=== PATIENT | male | born 1995 | race Caucasian/White ===

== ENCOUNTER 2017-03-10 07:40 | Emergency (ER) | payer OTHER ==
[2017-03-10 07:47] VITALS: BP 134/90; PULSE 72; RESP 17; TEMP 97.7
--- NOTE | 2017-03-10 08:11 | ED ---
ENT HPI - General Chief complaint: Dental/Oral Stated complaint: Dental Pain Time Seen by Provider: 03/10/17 08:00 Source: patient, RN notes reviewed, old records reviewed Mode of arrival: ambulatory Limitations: no limitations - History of Present Illness Initial comments: Physical is a 21-year-old male presents emergency Department chief complaint of left lower dental pain for the past 2 days. Patient reports that his wisdom teeth are coming in. Patient ports of the his been some swelling around the, the left lower molars. Patient denies any recent fever or chills. He denies any trismus. Denies any foul drainage or taste in his mouth. He reports that he's never had a problem with his teeth before. He states that he does not have a dentist at this time. - Related Data Previous Rx's Medication Instructions Recorded Erythromycin Ophth Oint [Romycin 1 applic LEFT EYE QID #3.5 gm 04/24/15 Ophth Oint] Penicillin V Potassium [Pen Vee K] 500 mg PO QID #40 tab 03/10/17 traMADol HCl [Ultram] 50 mg PO Q6H PRN #12 tab 03/10/17 Allergies Allergy/AdvReac Type Severity Reaction Status Date / Time No Known Allergies Allergy Verified 03/10/17 07:44 Review of Systems ROS Statement: Those systems with pertinent positive or pertinent negative responses have been documented in the HPI. ROS Other: All systems not noted in ROS Statement are negative. Past Medical History Past Medical History: No Reported History History of Any Multi-Drug Resistant Organisms: None Reported Past Surgical History: No Surgical Hx Reported Past Psychological History: No Psychological Hx Reported Smoking Status: Current every day smoker Past Alcohol Use History: Occasional Past Drug Use History: None Reported General Exam - General Exam Comments Initial Comments: This is a 21-year-old male. No acute distress. Limitations: no limitations General appearance: alert, in no apparent distress Head exam: Present: atraumatic, normocephalic, normal inspection Eye exam: Present: normal appearance ENT exam: Present: normal exam, mucous membranes moist. Absent: normal oropharynx (Patient has erythema and swelling around tooth #17. Tooth #17 is protruding through the gum and coming in on angle. There is concern for possible abscess surrounding the tooth.) Neck exam: Present: normal inspection Respiratory exam: Present: normal lung sounds bilaterally. Absent: respiratory distress, wheezes, rales, rhonchi, stridor Cardiovascular Exam: Present: regular rate, normal rhythm, normal heart sounds. Absent: systolic murmur, diastolic murmur, rubs, gallop, clicks GI/Abdominal exam: Present: soft, normal bowel sounds. Absent: distended, tenderness, guarding, rebound, rigid Extremities exam: Present: normal inspection, full ROM, normal capillary refill. Absent: tenderness, pedal edema, joint swelling, calf tenderness Back exam: Present: normal inspection Neurological exam: Present: alert, oriented X3, CN II-XII intact Psychiatric exam: Present: normal affect, normal mood Skin exam: Present: warm, dry, intact, normal color. Absent: rash Course Vital Signs 03/10/17 07:44 Temperature 97.7 F Pulse Rate 72 Respiratory 17 Rate Blood Pressure 134/90 O2 Sat by Pulse 96 Oximetry Medical Decision Making - Medical Decision Making 21-year-old male presents emergency Department 3 days of left lower dental pain. Patient has an incoming tooth #17, his wisdom tooth. It is coming on angle. There is a concern for some swelling and erythema around the tooth concerning for an abscess. Patient was started on Pen-Vee K and given a short course of pain medicine. Patient always so request a note for his community service today, he'll be given a note for the outer side he is here. Patient understands treatment plan will comply. Return parameters were discussed. Disposition Clinical Impression: Dental abscess Disposition: HOME SELF-CARE Condition: Good Instructions: Dental Abscess (ED) Additional Instructions: [facility] [address] [place] [address] [phone] (existing clients only) For new clients: [phone] 1st consult: $50 (includes Xrays) Usually 30% less then private dentist for visits after. [employer] Have to pay $50 for Xrays anmd rest is covered. [phone] Patient also recommended to use Orajel over the area. Follow-up with oral surgeon. Prescriptions: Penicillin V Potassium [Pen Vee K] 500 mg PO QID #40 tab traMADol HCl [Ultram] 50 mg PO Q6H PRN #12 tab PRN Reason: Pain Referrals: Norm Kaminski MD [Primary Care Provider] - 1-2 days Mirabelli,Eduardo, DDS [STAFF PHYSICIAN] - 1-2 days Time of Disposition: 08:07
== END 2017-03-10 08:18 | disposition home or self-care (01) ==
LOC: EC 07:40
DX: K04.7 Periapical abscess without sinus (principal); F17.200 Nicotine dependence, unspecified, uncomplicated
CPT/HCPCS: 99283

== ENCOUNTER 2017-07-29 07:39 | Emergency (ER) | payer OTHER ==
[2017-07-29 07:51] VITALS: BP 131/74; PULSE 97; RESP 18; TEMP 98.6
[2017-07-29] MEDS ORDERED: ONDANSETRON 4 MG ODT STARTER PACK 2 TAB BTL PO STA (08:30)
--- NOTE | 2017-07-29 08:31 | ED ---
General Adult HPI - General Chief complaint: Nausea/Vomiting/Diarrhea Stated complaint: vomiting Time Seen by Provider: 07/29/17 08:19 Source: patient, RN notes reviewed Mode of arrival: ambulatory Limitations: no limitations - History of Present Illness Initial comments: 22-year-old male who presents emergency room today with a chief complaint of symptoms of nausea vomiting diarrhea that started yesterday at 5 PM. Patient is several bouts of diarrhea no signs of blood. Does move to feeling nauseated. States her other children in the house have been sick. Patient denies any other complaints associated symptoms. Patient denies any recent fever , chills, shortness of breath, chest pain, back pain, numbness or tingling, dysuria or hematuria, constipation, headaches or visual changes, or any other complaints. - Related Data Previous Rx's Medication Instructions Recorded Erythromycin Ophth Oint [Romycin 1 applic LEFT EYE QID #3.5 gm 04/24/15 Ophth Oint] Penicillin V Potassium [Pen Vee K] 500 mg PO QID #40 tab 03/10/17 traMADol HCl [Ultram] 50 mg PO Q6H PRN #12 tab 03/10/17 Dicyclomine [Bentyl] 20 mg PO QID #20 tablet 07/29/17 Ondansetron Odt [Zofran ODT] 4 mg PO Q8HR PRN #20 tab 07/29/17 Allergies Allergy/AdvReac Type Severity Reaction Status Date / Time No Known Allergies Allergy Verified 07/29/17 07:50 Review of Systems ROS Statement: Those systems with pertinent positive or pertinent negative responses have been documented in the HPI. ROS Other: All systems not noted in ROS Statement are negative. Past Medical History Past Medical History: No Reported History History of Any Multi-Drug Resistant Organisms: None Reported Past Surgical History: No Surgical Hx Reported Past Psychological History: No Psychological Hx Reported Smoking Status: Current every day smoker Past Alcohol Use History: Occasional Past Drug Use History: None Reported General Exam - General Exam Comments Initial Comments: General: The patient is awake and alert, in no distress, and does not appear acutely ill. Eye: Pupils are equal, round and reactive to light, extra-ocular movements are intact. No nystagmus. There is normal conjunctiva bilaterally. No signs of icterus. Ears, nose, mouth and throat: There are moist mucous membranes and no oral lesions. Neck: The neck is supple, there is no tenderness or JVD. Cardiovascular: There is a regular rate and rhythm. No murmur, rub or gallop is appreciated. Respiratory: Lungs are clear to auscultation, respirations are non-labored, breath sounds are equal. No wheezes, stridor, rales, or rhonchi. Gastrointestinal: Soft, non-distended, non-tender abdomen without masses or organomegaly noted. There is no rebound or guarding present. No CVA tenderness. Bowel sounds are unremarkable. Musculoskeletal: Normal ROM, no tenderness. Strength 5/5. Sensation intact. Pulses equal bilaterally 2+. Neurological: A&O x 3. CN II-XII intact, There are no obvious motor or sensory deficits. Coordination appears grossly intact. Speech is normal. Skin: Skin is warm and dry and no rashes or lesions are noted. Psychiatric: Cooperative, appropriate mood & affect, normal judgment. Limitations: no limitations Course Vital Signs 07/29/17 07:49 Temperature 98.6 F Pulse Rate 97 Respiratory 18 Rate Blood Pressure 131/74 O2 Sat by Pulse 96 Oximetry Medical Decision Making - Medical Decision Making Patient examined here the emergency room shows no signs of distress present and soft nontender. He does not to symptoms that started yesterday about 5 PM. Please other sick contacts in the house. Will be treated for symptoms of nausea vomiting diarrhea. Given Zofran Bentyl for her symptoms. Advised return to the emergency room symptoms increase or worsen or for any other concerns. Disposition Clinical Impression: Nausea vomiting and diarrhea Disposition: HOME SELF-CARE Condition: Good Instructions: Acute Diarrhea (ED) Additional Instructions: Please use medication as discussed. Please follow-up with family doctor in the next 2 days of symptoms have not improved. Please return to emergency room if the symptoms increase or worsen or for any other concerns. Prescriptions: Dicyclomine [Bentyl] 20 mg PO QID #20 tablet Ondansetron Odt [Zofran ODT] 4 mg PO Q8HR PRN #20 tab PRN Reason: Nausea Referrals: None,Stated [Primary Care Provider] - 1-2 days Time of Disposition: 08:32
== END 2017-07-29 08:42 | disposition home or self-care (01) ==
LOC: EC 07:39
DX: R11.2 Nausea with vomiting, unspecified (principal); R19.7 Diarrhea, unspecified; F17.200 Nicotine dependence, unspecified, uncomplicated
CPT/HCPCS: 99283; S0119

== ENCOUNTER 2017-12-11 15:59 | Emergency (ER) | payer OTHER ==
[2017-12-11 16:02] VITALS: BP 129/85; RESP 20; TEMP 99.2
--- NOTE | 2017-12-11 16:26 | XR ---
EXAMINATION TYPE: XR chest 2V DATE OF EXAM: 12/11/2017 COMPARISON: Chest x-ray October 17, 2011. HISTORY: Cough, congestion, and shortness of breath for 2 days TECHNIQUE: Frontal and lateral views of the chest are obtained. FINDINGS: There is no focal air space opacity, pleural effusion, or pneumothorax seen. The cardiac silhouette size is within normal limits. The osseous structures are intact. IMPRESSION: No suspicious acute pulmonary process. No significant change from prior study.
[2017-12-11] MEDS ORDERED: IPRATROPIUM-ALBUTEROL 3 ML NEB INHALATION STA (16:28)
--- NOTE | 2017-12-11 16:43 | ED ---
URI HPI - General Chief Complaint: Upper Respiratory Infection Stated Complaint: cough; shortness of breath Time Seen by Provider: 12/11/17 16:27 Source: patient, RN notes reviewed Mode of arrival: ambulatory Limitations: no limitations - History of Present Illness Initial Comments: This is a 22-year-old male who presents to the emergency department with chief complaint of cough and shortness of breath. Patient states that yesterday he developed a productive cough and chest congestion. He denies any fevers but does state that he has had cold sweats. States he has also had a runny nose. Denies having asthma. States he is a current, every day smoker. He admits to having frequent bronchitis. - Related Data Previous Rx's Medication Instructions Recorded Erythromycin Ophth Oint [Romycin 1 applic LEFT EYE QID #3.5 gm 04/24/15 Ophth Oint] Penicillin V Potassium [Pen Vee K] 500 mg PO QID #40 tab 03/10/17 traMADol HCl [Ultram] 50 mg PO Q6H PRN #12 tab 03/10/17 Dicyclomine [Bentyl] 20 mg PO QID #20 tablet 07/29/17 Ondansetron Odt [Zofran ODT] 4 mg PO Q8HR PRN #20 tab 07/29/17 Albuterol Inhaler [Ventolin Hfa 1 - 2 puff INHALATION Q6HR PRN #1 12/11/17 Inhaler] inhaler predniSONE 20 mg PO BID #8 tab 12/11/17 Allergies Allergy/AdvReac Type Severity Reaction Status Date / Time No Known Allergies Allergy Verified 12/11/17 16:02 Review of Systems ROS Statement: Those systems with pertinent positive or pertinent negative responses have been documented in the HPI. ROS Other: All systems not noted in ROS Statement are negative. Past Medical History Past Medical History: No Reported History History of Any Multi-Drug Resistant Organisms: None Reported Past Surgical History: No Surgical Hx Reported Past Psychological History: No Psychological Hx Reported Smoking Status: Current every day smoker Past Alcohol Use History: Occasional Past Drug Use History: None Reported General Exam - General Exam Comments Initial Comments: General: Awake and alert, well-developed; in no apparent distress. Does not appear acutely ill. HEENT: Head atraumatic, normocephalic. Pupils are equal, round and reactive to light. Extraocular movements intact. Oropharynx moist with mild erythema and no exudates. Neck: Supple. Normal ROM. Cardiovascular: Regular rate and rhythm. No murmurs, rubs or gallops. Chest symmetrical. Respiratory: Diffuse rhonchi and wheezes throughout. Normal respiratory effort with no use of accessory muscles. Musculoskeletal: Normal ROM, no tenderness bilateral upper and lower extremities. Ambulating normally. Skin: [place], warm and dry without rashes or lesions. Neurological: Alert and oriented x3. CN II-XII grossly intact. Speech is fluent and answers are appropriate. No focal neuro deficits. Psychiatric: Normal mood and affect. No overt signs of depression or anxiety noted. Limitations: no limitations Course Vital Signs 12/11/17 16:01 Temperature 99.2 F Pulse Rate 95 Respiratory 20 Rate Blood Pressure 129/85 O2 Sat by Pulse 98 Oximetry Medical Decision Making - Medical Decision Making This is a 22-year-old male presents to the emergency department with chief complaint of cough and shortness of breath. Patient states that he developed chest congestion and cough yesterday. He states that he suffers feels short of breath and is wheezing. He does not have asthma but he is a current, every day smoker. Chest x-ray revealed no acute abnormalities. On physical examination, patient's vital signs are stable. Lungs have diffuse rhonchi and wheezes throughout. Patient was given a breathing treatment in the emergency department. Patient will be started on steroids and albuterol inhaler. Vital signs are stable and patient is in no acute distress. He will be discharged home at this time. All questions answered. Disposition Clinical Impression: Bronchitis Disposition: HOME SELF-CARE Condition: Good Instructions: Acute Bronchitis (ED), Wheezing (ED) Additional Instructions: Please take medications as prescribed. Please follow up with primary care provider within 1-2 days. Return to emergency department if symptoms should worsen or any concerns arise. Prescriptions: Albuterol Inhaler [Ventolin Hfa Inhaler] 1 - 2 puff INHALATION Q6HR PRN #1 inhaler PRN Reason: Dyspnea predniSONE 20 mg PO BID #8 tab Is patient prescribed a controlled substance at d/c from ED?: No Referrals: None,Stated [Primary Care Provider] - 1-2 days Time of Disposition: 16:55
[2017-12-11] MEDS ORDERED: predniSONE 50 MG TAB PO STA (16:51)
[2017-12-11 17:00] VITALS: PULSE 97
== END 2017-12-11 17:19 | disposition home or self-care (01) ==
LOC: EC 15:59
DX: J40 Bronchitis, not specified as acute or chronic (principal); F17.200 Nicotine dependence, unspecified, uncomplicated
CPT/HCPCS: 99283; 94640; 71046; J7512